=== PATIENT | female | born 1945 | race Caucasian/White ===

== ENCOUNTER 2020-06-21 10:12 | Outpatient (CLI) | payer MEDICARE ==
[2020-06-21 17:57] LABS: SARS-CoV-2 MS2 Positive; SARS-CoV-2 N Gene Negative; SARS-CoV-2 S Gene Negative; SARS-CoV-2 by NAA Not Detected (NotDetected); SARS-CoV-2 orf1ab Negative
== END 2020-06-21 10:13 | disposition home or self-care (01) ==
LOC: LABBT 10:12
PROVIDERS: ATTEND Ophthalmology Retina Specialist
DX: H35.341 Macular cyst, hole, or pseudohole, right eye (principal); Z20.828 Contact with and (suspected) exposure to other viral communicable diseases
CPT/HCPCS: 87635; U0003

== ENCOUNTER 2020-06-24 07:22 | Day surgery (SDC) | payer MEDICARE ==
[2020-06-23 10:22] VITALS: BMI 21.9
[~2020-06-24 07:22] MED LIST: Fluorouracil 100 MG, Enoxaparin Sodium 25 MG, EPINEPHrine 0.3 MG in Ophthalmic Irrigati... IRR SCH
[2020-06-24] MEDS ORDERED: Phenylephrine 2.5% Ophth Soln 5 ML BOT ONE (07:38)
[2020-06-24] MEDS ORDERED: Cyclopentolate HCl 1% 5 ML BOT ONE (07:38)
[2020-06-24] MEDS ORDERED: Midazolam HCl 2 mg/2 ml Vial ONE ×2 (08:49→08:52)
[2020-06-24] MEDS ORDERED: Fentanyl 100 MCG/2 ML VIAL ONE (08:52)
[2020-06-24] MEDS ORDERED: Lidocaine 1% PF 5 ML VIAL ONE (10:35)
[2020-06-24] MEDS ORDERED: Lidocaine 4% PF 5 ML AMP ONE (10:35)
[2020-06-24] MEDS ORDERED: Maxitrol 0.1% Opth Oint 3.5 GM TUBE ONE (10:35)
[2020-06-24] MEDS ORDERED: Bupivacaine PF 0.75% SDV 10 ML ONE (10:35)
[2020-06-24] MEDS ORDERED: PROPOFOL 200 MG/20 ML VIAL ONE (10:35)
[2020-06-24] MEDS ORDERED: CEFAZOLIN 1 GM VIAL ONE (10:35)
[2020-06-24] MEDS ORDERED: Triamcinolone 40 MG/ML VIAL ONE (10:35)
[2020-06-24] MEDS ORDERED: Indocyanine Green 25 MG/10 ML VIAL ONE (10:35)
--- NOTE | 2020-06-24 22:12 | OP ---
DATE OF PROCEDURE: 06/24/2020 PREOPERATIVE DIAGNOSIS: Macular hole, right eye. POSTOPERATIVE DIAGNOSIS: Macular hole, right eye. PROCEDURES PERFORMED: Pars plana vitrectomy and internal limiting membrane peel, right eye. ANESTHESIA: Local monitored anesthesia care. DESCRIPTION OF PROCEDURE: The patient identified in the preoperative holding area. Appropriate informed consent for the planned surgical procedure on the right eye had been obtained. The patient was transported to the operative suite. Appropriate cardiopulmonary monitoring was established. Local anesthesia obtained using retrobulbar modified Van Lint lid block using 50:50 mixture of 4% lidocaine and 0.75% bupivacaine. The patient was prepped and draped in usual sterile manner for ophthalmic surgery right eye. Lid speculum was placed in the right eye. A 27-gauge trocar was placed conjunctiva and sclera supratemporally, inferotemporally, and supranasally. Infusion line was placed inferotemporally. Light pipe vitreous cutter inserted to the eye. Core vitrectomy was performed. Posterior hyaloid face was elevated, noted to be elevated. Indocyanine green dye was infused in the posterior pole x1 identifying the internal limiting membrane. This was elevated using membrane scraper and peeled across the macula. One piece using end gripping forceps. Indirect ophthalmoscopy was used to examine the retina 360 degrees. No holes, breaks, or tears were identified. Complete air-fluid exchange was performed with 10 minutes being left for fluid to drain posteriorly, 15% gas was infused into the eye. Trocars were removed and eye was noted to retain pressure well. Retrobulbar Kenalog and subconjunctival Ancef were placed. Antibiotic was placed. Eye was patched and shielded. The patient taken to postop recovery in good condition having suffered no immediate perioperative complications. The patient was instructed to keep patch shield on. Avoid lifting or bending. Followup appointment with Dr. Duncan consultation patient Ny Barlow. Job ID: [id number]
== END 2020-06-24 11:05 | disposition home or self-care (01) ==
LOC: SDC 07:22
PROVIDERS: ATTEND Ophthalmology Retina Specialist
PROC: 08T43ZZ Resection of Right Vitreous, Percutaneous Approach (ICD-10-PCS; principal; 2020-06-24)
PROC: 08NE3ZZ Release Right Retina, Percutaneous Approach (ICD-10-PCS; 2020-06-24)
DX: H35.341 Macular cyst, hole, or pseudohole, right eye (principal); E78.5 Hyperlipidemia, unspecified; Z87.891 Personal history of nicotine dependence; Z88.5 Allergy status to narcotic agent
CPT/HCPCS: 67025; J0171; J0690; J1650; J2001; J2250; J2704; J3010; J3301; J3490; J9190